=== PATIENT | male | born 1995 | race Caucasian/White ===

== ENCOUNTER 2020-05-02 14:05 | Outpatient (REF) | payer BC, SELFPAY | END 2020-05-02 14:06 | disposition home or self-care (01) | LOC: HO.LAB 14:05 | PROVIDERS: Visit Provider Internal Medicine | DX: Z20.828 Contact with and (suspected) exposure to other viral communicable diseases (principal) | CPT/HCPCS: C9803; U0003 ==

== ENCOUNTER 2023-12-21 10:15 | Emergency (ER) | payer MEDICAID, SELFPAY ==
[2023-12-21 10:19] VITALS: BP 86/63; PULSE 86; RESP 20; TEMP 37; O2SAT 98; BMI 25.8
[2023-12-21 10:35] VITALS: BP 116/53; PULSE 79
--- NOTE | 2023-12-21 11:48 | ED.GENADULT ---
HPI - General Adult General Chief complaint: Skin/Abscess/Foreign Body Stated complaint: r arm laceration Time Seen by Provider: 12/21/23 11:48 Source: patient Mode of arrival: ambulatory Limitations: no limitations History of Present Illness ED Provider: Wild [facility] narrative: Patient is a 28-year-old right-hand dominant male presenting to the emergency department with laceration to right anterior wrist. States that he fell at work and landed on a piece of sheet metal causing the laceration. He quickly applied pressure and ran here from the job site. He was initially diaphoretic and dizzy but states that has since resolved while being in the emergency department. Denies any numbness or tingling to his arm or hand. Reports full range of motion to all fingers. Unknown last tetanus vaccine. complaint: laceration Onset (ago): minute(s) Location: right and upper extremity Quality: aching Related Data Previous Rx's ?Medication ?Instructions ?Recorded cephalexin 500 mg capsule 500 mg PO QID #28 caps 12/21/23 Allergies Allergy/AdvReac Type Severity Reaction Status Date / Time No Known Allergies Allergy Verified 12/21/23 10:24 Review of Systems Review of Systems: As per HPI Yes all other systems are reviewed and are negative Constitutional: Constitutional: Reports as per HPI [facility] Social History Social History Advance Directives: No Advance Directives Information Provided: No Physical Exam ED Vital Signs: Vital Signs - 24 hr 12/21/23 10:19 12/21/23 10:35 Temperature 98.6 F Pulse Rate 86 79 Respiratory Rate 20 Blood Pressure 86/63 L 116/53 L Pulse Oximetry 98 Oxygen Delivery Method Room Air BMI result Body Mass Index 25.8 Vital signs have been reviewed and appear to be correct. Blood pressure initially hypotensive which improved without treatment. Heart rate normal. Respiratory rate normal. Temperature normal. Oxygen saturation normal. Const General: cooperative, healthy appearing and no acute distress Orientation/consciousness: oriented to person, oriented to place, oriented to time and patient oriented x3 Limitations: no limitations HENMT Head: Yes normocephalic and Yes atraumatic Ears: external ears normal General nose exam: Normal external nose present Face and sinus: Yes face symmetric Mouth: oropharynx normal and moist mucous membranes Throat: Yes uvula midline Eyes Pupils: Equal, round and reactive pupils present Neck Neck: Yes normal visual inspection and Yes supple Resp Effort & Inspection: normal respiratory effort and able to speak in complete sentences Auscultation: clear to auscultation bilaterally Cardio Rate: regular rate Rhythm: regular rhythm Heart sounds: S1 normal heart sound present and S2 normal heart sound present GI Palpation (GI): Soft to palpation and nontender Auscultation: normoactive bowel sounds General: Yes no CVA tenderness Back/Spine/Pelvis Back: no CVA tenderness Skin General skin exam: elasticity normal and turgor normal Neuro General: oriented to person, oriented to place, oriented to time, patient oriented x3, moves all extremities, no focal motor deficits and CN's II-XI intact bilaterally Cranial nerves: Yes Equal, round and reactive pupils present Cognition (Neuro): normal cognition Extrem General: Yes full ROM, Yes no pedal edema and Yes no calf tenderness Right upper extremity: elbow/forearm Details: laceration forearm distal anterior Details: linear, contaminated, involving subcutaneous tissue, with motor nerve function intact and with sensation intact; no foreign body present Elbow/forearm/wrist images: 1. 5cm linear laceration Psych Mental Status: mental status grossly normal Affect: normal affect Thought process: Normal thought process present Medications Administered Discontinued Medications Generic Name Dose Route Start Last Admin Trade Name Freq PRN Reason Stop Dose Admin Diphtheria/Tetanus/Acell Pertussis 0.5 ml 12/21/23 11:48 12/21/23 11:56 Diphth,Pertus(Acell),Tet Adult 0.5 Ml Syringe IM 12/21/23 11:49 0.5 ml .ONCE ONE Administration Lidocaine HCl 10 ml 12/21/23 11:48 12/21/23 12:13 Lidocaine Hcl 1 % Mpf 5 Ml Vial INFILTRATI 12/21/23 11:49 10 ml ONCE ONE Administration Procedures Laceration Laceration 1: Site: upper extremity Side (If applicable): right Size (cm): 5 Description: linear Depth: simple, single layer Local Anesthetic: lidocaine 1% Amount of anesthesia used (mL): 6 Pre-repair: wound explored Skin layer closed with: other (prolene) Size (cm): 4-0 Number of sutures: 12 Technique: simple, interrupted Medical Decision Making Medical Decision Making MDM Narrative: Patient is a 28-year-old right-hand dominant male presenting to the emergency department with laceration to right anterior wrist. On exam patient is awake, A+Ox3, initially hypotensive which improved without intervention, VS otherwise WNL, afebrile, normal neurological exam without focal deficits, physical exam findings as above. Given reported symptoms and physical exam findings, initial differential includes laceration, tendon injury. Laceration thoroughly cleansed and repaired as per procedure note. Wound care and return precautions discussed at bedside. Return for suture removal. Treating with course of keflex as wound was contaminated. Follow up with PCP. Patient verbalized understanding of and agreement with plan. Differential Diagnosis Differential Diagnoses: The differential diagnosis associated with the presentation includes As per [facility] External Record Review External record reviewed: Inpatient record, Office record and Outpatient record Prescription Management I considered prescription management with: Antibiotic Discharge Plan Discharge Clinical Impression: Laceration of right forearm Patient Disposition: Home, Self-Care Instructions: Cephalexin (By mouth), Care For Your Stitches (DC), Laceration (DC), Stitches Removal (ED) Additional Instructions: You have been evaluated in the emergency department today for a laceration to your forearm. Your laceration was repaired in the emergency department with 12 sutures. Please keep the area surrounding the laceration clean and dry and keep dressing in place for the next 24 hours. After that please change the dressing and assess the wound daily. Do not submerge your arm in water until the stitches have been removed and the wound is fully healed (no swimming, hot tubs, etc). Keep the area out of direct sunlight for the next 6 months to help prevent scarring. You should have the sutures removed in 7-10 days. You are being treated with antibiotics to prevent infection, please take these as prescribed for the full course. If you develop fever, redness, swelling at the site of your laceration, or thick yellow drainage please come back to the ER for a wound check. Prescriptions: New cephalexin 500 mg capsule 500 mg PO QID Qty: 28 0RF Print Language: Irish
[2023-12-21] MEDS: Diphth,Pertus(ACell),Tet Adult 0.5 ML SYRINGE IM (11:56)
[2023-12-21] MEDS: Lidocaine HCl 1 % MPF 5 ML VIAL 10 ML INFILTRATI (12:13)
[2023-12-21 12:44] VITALS: BP 116/53; PULSE 79; RESP 20; TEMP 37; O2SAT 98
== END 2023-12-21 12:45 | disposition home or self-care (01) ==
PROVIDERS: Emergency Provider Emergency Medicine; PCP Internal Medicine
DX: S51.811A Laceration without foreign body of right forearm, initial encounter (principal); W26.8XXA Contact with other sharp object(s), not elsewhere classified, initial encounter; Y93.89 Activity, other specified; Y92.89 Other specified places as the place of occurrence of the external cause; Y99.0 Civilian activity done for income or pay; Z23 Encounter for immunization
CPT/HCPCS: 12032; 90471; 90715; 99282; 99284

== ENCOUNTER 2024-12-27 19:42 | Emergency (ER) | payer MEDICAID, SELFPAY ==
--- NOTE | ~2024-12-27 | XR_ITS ---
CLINICAL HISTORY: 4th finger laceration. fracture? ran over gate 3 view right hand Comparison: None provided Findings: Nondisplaced fractures of the 4th distal phalangeal tuft. Otherwise intact bones. No foreign body. IMPRESSION: 1. Nondisplaced 4th distal phalangeal tuft fractures. This document has been electronically signed by: Wilner Villa MD on 12/27/2024 20:21:00
[2024-12-27 19:49] VITALS: BP 115/50; PULSE 85; RESP 16; TEMP 36.5; O2SAT 97; BMI 29.5
--- NOTE | 2024-12-27 19:57 | ED.GENADULT ---
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 Long laceration sustained along the radial aspect of the distal digit. Bleeding intact. Tetanus up-to-date Related Data Previous Rx's ?Medication ?Instructions ?Recorded amoxicillin 875 mg-potassium 1 tab PO BID 10 days #20 tabs 12/28/24 clavulanate 125 mg tablet cephalexin 500 mg capsule 500 mg PO Q12H 5 days #10 caps 12/30/24 Allergies Allergy/AdvReac Type Severity Reaction Status Date / Time No Known Allergies Allergy Verified 12/28/24 14:18 Physical Exam ED Exam Exam: GENERAL: Well appearing. No apparent distress. Alert. HEAD/NECK: No visual trauma. EYES: Normal to inspection. No conjunctival erythema. No discharge. ENMT: Hearing grossly normal. External nose normal. RESPIRATORY: Respiratory effort normal. CARDIOVASCULAR: Additional details (Grossly well perfused). SKIN: No jaundice. MSK: Right hand. No other significant injuries except for the right 4th distal digit. See photos below essentially volar avulsion injury extending from the PIP radial aspect to the nail bed. The skin surprisingly appears reasonably well-perfused. He has intact complete flexion at the PIP but limited flexion at the D IP. There is exposed bone distally. Vital Signs: Vital Signs - 24 hr 12/27/24 19:49 12/27/24 21:59 12/27/24 22:09 Temperature 97.7 F 98.0 F Pulse Rate 85 95 95 Respiratory Rate 16 16 16 Blood Pressure 115/50 L 130/73 130/73 Pulse Oximetry 97 96 96 Oxygen Delivery Method Room Air Room Air Room Air BMI result Body Mass Index 29.5 Course Course Course Narrative: RME: 29-year-old male presents to ED for right 4th finger laceration caused by gait running over finger. Positive for laceration was sent for x-ray Medications Administered Discontinued Medications Generic Name Dose Route Start Last Admin Trade Name Freq PRN Reason Stop Dose Admin Cephalexin HCl 500 mg 12/27/24 21:03 12/27/24 21:11 Cephalexin 500 Mg Capsule PO 12/27/24 21:04 500 mg ONCE ONE Administration Diphtheria/Tetanus/Acell Pertussis 0.5 ml 12/27/24 21:03 12/27/24 21:11 Diphth,Pertus(Acell),Tet Adult 0.5 Ml Syringe IM 12/27/24 21:04 Not Given .ONCE ONE Ibuprofen 600 mg 12/27/24 21:03 12/27/24 21:10 Ibuprofen 600 Mg Tablet PO 12/27/24 21:04 600 mg ONCE ONE Administration Lidocaine HCl 20 ml 12/27/24 21:05 12/27/24 21:11 Lidocaine Hcl 1 % Mpf 5 Ml Vial INFILTRATI 12/27/24 21:06 20 ml ONCE ONE Administration Lorazepam 1 mg 12/27/24 21:03 12/27/24 21:11 Lorazepam 1 Mg Tablet PO 12/27/24 21:04 1 mg ONCE ONE Administration Procedures Procedure Narrative Procedure Narrative: PROCEDURE NOTE Procedure: Wound Repair Performed by: Pancho Nixon MD Indication: Laceration Procedure: The wound, located on the radial aspect of the right 4th digit, measured 6 cm and was subcutaneous and muscle and linear.? The neurovascular exam was intact though decreased sensation over the avulsed distal skin.? Skin was prepped with Betadine.? Anesthesia was obtained with 8 ml of 1% lidocaine without epinephrine digital block.? Wound was not contaminated.? It was irrigated with extensively with saline/Betadine and explored.? No foreign body identified. Removal of was not required.? Extensive cleaning/undermining was/not required. No overt visible flexor tendon injury was identified The wound was closed using 8., 4-0 Prolene sutures simple interrupted including to tethering the distal aspect of the nail to the digital skin. ? Orthopedic Splinting/Casting Injury #1: Side: right Upper Extremity Injury Location: finger (R 4th) Upper Extremity Immobilizer: aluminum form splint and finger (other) Medical Decision Making Medical Decision Making MDM Narrative: Medical Decision Makin-year-old male with isolated right, dominant hand injury the 4th digit with an avulsion. X-ray shows tuft fracture. There was no clear nail bed or matrix injury. No obvious tenderness injury he does have some perhaps mild diminished distal interphalangeal joint flexion but intact PIP and MCP flexion. The nail bed appears well-perfused and sensation although difficult to assess on the avulsed polyp the remainder of the digits intact. No clear arterial injury. Orthopedic service made aware to expedite outpatient follow up without emergent consultation in the ED. They will call the patient to set up outpatient follow up. Laceration/avulsion was repaired with what I felt was adequate approximation of the tissue Preliminary Favored Differential Diagnosis: Avulsion/fracture/neurovascular injury among additional considered etiologies Testing Interpreted Independently: Not Applicable Radiology or Lab testing Results Reviewed: Tuft fracture no foreign body Consults: Not Applicable Independent Historians/External Chart Reviews: Not Applicable Social Determinants of Health Impacting MDM/Planning: Not Applicable Discharge Plan Discharge Clinical Impression: Laceration, Closed fracture of tuft of distal phalanx of finger Patient Disposition: Home, Self-Care Instructions: Finger Fracture (ED) Additional Instructions: DISCHARGE DIAGNOSES: Fracture of the tip of the finger called a tuft fracture Complex laceration, nail bed injury and avulsion of the finger skin, repaired/sutured and splinted in the emergency department HISTORY OF PRESENTATION: ?Crush injury EMERGENCY DEPARTMENT COURSE,TESTS, TREATMENTS: While in the ED today you had extensive irrigation and suturing as well as splinting of the 4th right digit. An x-ray was performed without signs of foreign body but there was a fracture of the tip bone of the finger. We contacted Orthopedics they will reach out to tomorrow DISCHARGE MEDICATIONS: ?Keflex FOLLOW-UP: ?Call your primary or general physician soon as possible to discuss your symptoms, your ED visit and to discuss follow up plans Expect a call tomorrow from the Orthopedic Department. If you do not call the office listed here on the paperwork INSTRUCTIONS ?& RETURN PRECAUTIONS: If any symptoms change first call your primary physician, if it is after-hours your primary doctors office should have a provider personal lines account executive you can speak with. If the symptoms are severe or very concerning to you then call 911 or return to the ED. Do not submerge the wound keep it covered and splinted as we have done here until you see the hand surgeon Pancho Nixon MD Emergency Physician [facility] Prescriptions: New cephalexin 500 mg capsule 500 mg PO Q12H 5 Days Qty: 10 0RF No Action amoxicillin-pot clavulanate 875-125 mg tablet 1 tab PO BID 10 Days Qty: 20 0RF Interventions: ED Discharge Assessment Last Done: 12/27/24 22:09 Discharge Date/Time: 12/27/24 22:16 Print Language: Citizen [place]
[2024-12-27] MEDS: Lidocaine HCl 1 % MPF 5 ML VIAL 20 ML INFILTRATI (21:11)
[2024-12-27 21:59] VITALS: BP 130/73; PULSE 95; RESP 16; O2SAT 96
[2024-12-27 22:09] VITALS: BP 130/73; PULSE 95; RESP 16; TEMP 36.7; O2SAT 96
== END 2024-12-27 22:16 | disposition home or self-care (01) ==
PROVIDERS: Emergency Provider Emergency Medicine; PCP Internal Medicine
DX: S62.664B Nondisplaced fracture of distal phalanx of right ring finger, initial encounter for open fracture (principal); S61.314A Laceration without foreign body of right ring finger with damage to nail, initial encounter; W23.1XXA Caught, crushed, jammed, or pinched between stationary objects, initial encounter; M79.644 Pain in right finger(s); Y93.89 Activity, other specified; Y92.89 Other specified places as the place of occurrence of the external cause; Y99.0 Civilian activity done for income or pay
CPT/HCPCS: 13132; 29130; 73120; 99284; J2003

== ENCOUNTER → 2024-12-27 19:56 | Outpatient (BNV) | payer MEDICAID, SELFPAY | PROVIDERS: Emergency Provider Emergency Medicine; PCP Internal Medicine; Visit Provider Radiology Diagnostic Radiology | DX: M79.641 Pain in right hand (principal) | CPT/HCPCS: 73120 ==

== ENCOUNTER 2024-12-28 13:17 | Outpatient (REF) | payer MEDICAID, SELFPAY ==
--- NOTE | ~2024-12-28 | XR_ITS ---
EXAMINATION: XR HAND, RIGHT CLINICAL INFORMATION: M79.641 - Pain in right hand COMPARISON: None available. TECHNIQUE: PA, lateral, and oblique views of the right hand. FINDINGS: There is a volar splint extending between the tip of the fourth digit to the third metacarpal neck region. No fracture is identified. XR/XR hand RT min 3V IMPRESSION: No acute fracture. Electronically signed by: Agapito Montes MD 12/28/2024 02:27 PM EDT
--- OUTSIDE RECORDS SUMMARY | 2024-12-28 13:44 | XMS_ITS | Data Portability ---
Author Organization [facility], [email or web address] Address [address] [place] [address] Assessment No assessment recorded. Plan of Treatment Reminders Order Date Submit Date Provider Last Modified By Organization Details Last Modified Time Details Appointments None record ed. Lab None record ed. Referral None record ed. Procedures None record ed. Surgeries None record ed. Imaging None record ed. Medication Orders None record ed. Patient TargetsNo targets recorded. Patient InstructionsNo instructions recorded. Reason for Referral None Reported. Medical Equipment None Reported. Vitals None Recorded Social History None recorded. Functional Status None recorded. Mental Status None recorded. Family History Nothing Reported. Medical History No medical history recorded. Past Encounters Encounter ID Performer Location Encounter Start Date Encounter Closed Date Diagnosis/Indication Diagnosis SNOMED-CT Code Diagnosis ICD10 Code Diagnosis Note [id number] [facility] [facility] [address] [place] [address] 07/14/2018 10:04:05 07/14/2018 10:50:46 [id number] [facility] [address] [place] [address] 01/26/2019 15:30:22 01/26/2019 15:47:05 [id number] [address] [place] [address] 03/28/2020 10:33:29 03/28/2020 13:52:51 [id number] [address] [place] [address] 12/16/2019 11:51:50 12/16/2019 13:49:06 [id number] [address] [address] [place] [address] 04/28/2019 17:52:30 04/28/2019 19:11:16 [id number] [address] [address] [place] [address] 03/31/2019 17:45:58 03/31/2019 17:50:39 [id number] [address] [address] [place] [address] 08/15/2017 12:44:19 08/15/2017 14:57:15 Health Concerns Section Related Observation LastModified by Organization Detai ls LastModified Time None Recorded Concern Status LastModified by Organization Details LastModified Time None Recorded Advance Directives Directive None Recorded Payers Insurance Date Sequence Insurance Name Policy Number Policy Avila Covered Member ID Avila Member ID Guarantor Name 12/22/2022 1 DEL (PPO) Geovani Yap [id number] Aakash Yap
== END 2024-12-28 13:18 | disposition home or self-care (01) ==
LOC: HO.HOSX 13:17
DX: S62.604B Fracture of unspecified phalanx of right ring finger, initial encounter for open fracture (principal); M79.641 Pain in right hand; W23.0XXA Caught, crushed, jammed, or pinched between moving objects, initial encounter
CPT/HCPCS: 73130; 99212

== ENCOUNTER 2024-12-28 13:56 | Outpatient (AMB) | payer MEDICAID, SELFPAY ==
--- NOTE | 2024-12-28 14:07 | A.OFFVIS_ITS ---
Vital Signs 12/28/24 14:09 Height 5 ft 8 in Weight 194 lb BMI 29.5 Intake Visit Reasons: ED f/u for R RF open fx Intake Note: Aakash is a 29 year old right hand dominant male who presents today as a new patient for an [facility] ED follow up status post right ring finger fracture, DOI: 12/27/24. Patient states he was closing a commercial chain-link fence on a rail when he sustained a crush injury to the right ring distal digit. He sustained a long laceration along the radial aspect of the distal digit. Patient reports pain is located on the medial and lateral aspect of the ring finger. He denies numbness, tingling, and finger locking; However he feels weakness in the entire hand. He is also experiencing hypersensitivity at the DIP. Allergies No Known Allergies Allergy (Verified 12/28/24 14:18) HPI HPI ED f/u for R RF open fx: Details: Aakash is a 29 year old right hand dominant male who presents today as a new patient for an [facility] ED follow up status post right ring finger fracture, DOI: 12/27/24. Patient states he was closing a commercial chain-link fence on a rail when he sustained a crush injury to the right ring distal digit. He sustained a long laceration along the radial aspect of the distal digit. Patient reports pain is located on the medial and lateral aspect of the ring finger. He denies numbness, tingling, and finger locking; However he feels weakness in the entire hand. He is also experiencing hypersensitivity at the DIP. Review of Systems Const All systems reviewed & are unremarkable except as noted in HPI and below Physical Exam Vital Signs: BMI result Body Mass Index 29.5 Extrem Other: Patient is alert, oriented, and in no acute distress. Neuro: Normal sensation of the tips of all digits of the right hand at this time Vascular: Cap refill brisk Pain: Tenderness to palpation about the right ring finger Skin: Complex laceration noted on the radial aspect of the right ring finger that has been repaired with sutures in the ED General: No ecchymosis, erythema, or evidence of infection. Psych: Appears grossly normal Affect normal Attitude cooperative Office Procedures AMB Fracture Care Fracture Billing Code: Fracture Billing Code Casting/Splints 64658-[id number] Splint application Procedure code (CPT) selection complete Results Reviewed Results Reviewed: X-rays obtained in the office today and independently reviewed by me, Gibran Blanton PA-C, demonstrate []. Assessment & Plan Assessment & Plan (1) Open fracture of phalanx of right ring finger: Code(s): S62.604B - Fracture of unspecified phalanx of right ring finger, initial encounter for open fracture Category: Medical Plan 1. Open fracture of right ring finger Date of injury 12/27/2024 Patient is educated about this condition Patient is educated about the typical recovery course Antibiotics changed to Augmentin at this time for broader spectrum coverage given dirty nature of wound Patient is provided with a fingertips splint and dressing supplies Dressing should remain clean, dry, intact until follow-up Anticipate sutures remaining in for at least 2 weeks post injury Patient understands this and is amenable to this plan Follow-up next week for reassessment, sooner with any acute concerns Orders: Orders XR hand RT min 3V 12/28/24 M79.641 - Pain in right hand Medications: New amoxicillin-pot clavulanate 875-125 mg 1 tab PO BID 20 tabs 0RF 10 days Discontinued cephalexin Discontinued Reason: Ancillary Entered New Order 500 mg PO QID 28 caps 0RF cefadroxil Discontinued Reason: Ancillary Entered New Order 500 mg PO BID 7 days 14 caps 0RF Coding Level of Care Code New Pt Level 3 (30502) Diagnoses Open fracture of phalanx of right ring finger S62.604B CPT Codes Fracture Care - Fracture Billing Code: Fracture Billing Code ([id number]) Splint - CPT: 76749-Lcuuxe Splint application ([id number])
[2024-12-28 14:09] VITALS: BMI 29.5
== END 2024-12-28 15:01 | disposition home or self-care (01) ==
LOC: HO.HOS 13:57
PROVIDERS: PCP Internal Medicine
DX: S62.604B Fracture of unspecified phalanx of right ring finger, initial encounter for open fracture (principal)
CPT/HCPCS: 99070; 99203

== ENCOUNTER → 2024-12-28 14:07 | Outpatient (BNV) | payer MEDICAID, SELFPAY | PROVIDERS: Visit Provider Radiology Diagnostic Radiology | DX: M79.641 Pain in right hand (principal) | CPT/HCPCS: 73130 ==

== ENCOUNTER 2025-01-03 14:44 | Outpatient (REF) | payer MEDICAID, SELFPAY ==
--- NOTE | ~2025-01-03 | XR_ITS ---
EXAMINATION: XR HAND, RIGHT CLINICAL INFORMATION: M79.641 - Pain in right hand , arrow indicating fourth digit COMPARISON: None available. TECHNIQUE: PA, lateral, and oblique views of the right hand. FINDINGS: There is a healed boxer's fracture. No acute fracture is identified. There is soft tissue swelling involving the distal half of the fourth digit. There is nonspecific punctate high density anterior to the mid portions of the distal phalanx of the fourth digit. XR/XR hand RT min 3V IMPRESSION: Soft tissue swelling involving the fourth digit. Healed boxer's fracture. Electronically signed by: Agapito Montes MD 01/03/2025 03:01 PM EDT
--- OUTSIDE RECORDS SUMMARY | 2025-01-03 15:30 | XMS_ITS | Data Portability ---
Author Organization [facility], [address] Address [address] [place] [address] Assessment No assessment recorded. Plan of Treatment [...] SNOMED-CT Code Diagnosis ICD10 Code Diagnosis Note [id number] [facility] [address] [place] [address] 07/14/2018 10:04:05 07/14/2018 10:50:46 [id number] [facility] [address] [place] [address] 01/26/2019 15:30:22 01/26/2019 15:47:05 [id number] [address] [address] [facility] [place] [address] 03/28/2020 10:33:29 03/28/2020 13:52:51 [id number] [address] [place] [address] 12/16/2019 11:51:50 12/16/2019 13:49:06 [id number] [address] [address] [address] [facility] [address] [place] [address] 04/28/2019 17:52:30 04/28/2019 19:11:16 [id number] [address] [facility] [address] [place] [address] 03/31/2019 17:45:58 03/31/2019 17:50:39 [id number] [address] [facility] [place] [address] 08/15/2017 12:44:19 08/15/2017 14:57:15 Health Concerns Section Related Observation LastModified by Organization Detai ls LastModified Time None Recorded Concern Status LastModified by Organization Details LastModified Time None Recorded Advance Directives Directive None Recorded Payers Insurance Date Sequence Insurance Name Policy Number Policy Avila Covered Member ID Avila Member ID Guarantor Name 12/22/2022 1 DEL (PPO) Geovani Yap [id number] Aakash Yap
== END 2025-01-03 14:45 | disposition home or self-care (01) ==
LOC: HO.HOSX 14:44
DX: S62.604D Fracture of unspecified phalanx of right ring finger, subsequent encounter for fracture with routine healing (principal); M79.641 Pain in right hand; X58.XXXD Exposure to other specified factors, subsequent encounter
CPT/HCPCS: 73130; 99212

== ENCOUNTER 2025-01-03 14:45 | Outpatient (AMB) | payer MEDICAID, SELFPAY ==
--- NOTE | 2025-01-03 14:58 | A.OFFVIS_ITS ---
Vital Signs 01/03/25 15:03 Height 5 ft 8 in Weight 195 lb BMI 29.6 Handedness Right Intake Visit Reasons: OV-Rt RF open fx f/u with XR Intake Note: Aakash is a 29 year old right hand dominant male who presents today for follow up status post right ring finger fracture, DOI: 12/27/24. At his last visit, one week ago, his antibiotics were changed to Augmentin. He was provided with a fingertips splint and dressing supplies and instructed to maintain the dressing clean, dry, and intact until follow-up. Patient reports he thinks his finger looks better than what it first looked at. Expresses pain if he accidental bumps the right ring finger. He has been splinting the finger and says it was removed to update his xrays in office today. He has not completed his antibiotics but says he is still taking them. Allergies No Known Allergies Allergy (Verified 01/03/25 15:01) HPI HPI OV-Rt RF open fx f/u with XR: Details: Aakash is a 29 year old right hand dominant male who presents today for follow up status post right ring finger fracture, DOI: 12/27/24. At his last visit, one week ago, his antibiotics were changed to Augmentin. He was provided with a fingertips splint and dressing supplies and instructed to maintain the dressing clean, dry, and intact until follow-up. Patient reports he thinks his finger looks better than what it first looked at. Expresses pain if he accidental bumps the right ring finger. He has been splinting the finger and says it was removed to update his xrays in office today. He has not completed his antibiotics but says he is still taking them. [facility] Medical History (Updated 01/03/25 @ 15:02 by LATRELL Dumas) Open fracture of phalanx of right ring finger (~12/27/24) Social History (Updated 01/03/25 @ 15:02 by LATRELL Dumas) Alcohol intake: former Substance Use Type: Marijuana service: No Current occupational status: employed Current occupation: Self employed Review of Systems Const All systems reviewed & are unremarkable except as noted in HPI and below Physical Exam Vital Signs: BMI result Body Mass Index 29.6 Extrem Other: Patient is alert, oriented, and in no acute distress. Neuro: Normal sensation of the tips of all digits of the right hand at this time Vascular: Cap refill brisk Pain: Very mild tenderness to palpation about the right ring finger Skin: Complex laceration noted on the radial aspect of the right ring finger that has been repaired with sutures in the ED prior to previous visit General: No ecchymosis, erythema, or evidence of infection. Psych: Appears grossly normal Affect normal Attitude cooperative Results Reviewed Results Reviewed: X-rays obtained in the office today and independently reviewed by me, Gibran Blanton PA-C, demonstrate nondisplaced fracture of the distal phalanx of right ring finger. Assessment & Plan Assessment & Plan (1) Open fracture of phalanx of right ring finger: Onset Date: ~12/27/24 Code(s): S62.604B - Fracture of unspecified phalanx of right ring finger, initial encounter for open fracture Category: Medical Plan 1. 1. Open fracture of right ring finger Date of injury 12/27/2024 Patient is educated about this condition Patient is educated about the typical recovery course Augmentin refilled given dirty nature of the wound Patient is provided with a fingertips splint and dressing supplies for the following week Dressing should remain clean, dry, intact until follow-up Anticipate sutures remaining in for at least 1 more week Patient understands this and is amenable to this plan Follow-up in 7-10 days for reassessment, sooner with any acute concerns. Anticipate removal of at least every other suture at that time. Orders: Orders XR hand RT min 3V Today M79.641 - Pain in right hand Medications: Refilled amoxicillin-pot clavulanate 875-125 mg 1 tab PO BID 20 tabs 0RF 10 days Coding Level of Care Code Global (96673) Diagnoses Open fracture of phalanx of right ring finger S62.604B
[2025-01-03 15:03] VITALS: BMI 29.6
== END 2025-01-03 15:35 | disposition home or self-care (01) ==
LOC: HO.HOS 14:45
PROVIDERS: PCP Internal Medicine
DX: S62.604B Fracture of unspecified phalanx of right ring finger, initial encounter for open fracture (principal)
CPT/HCPCS: 99213

== ENCOUNTER → 2025-01-03 14:49 | Outpatient (BNV) | payer MEDICAID, SELFPAY | PROVIDERS: Visit Provider Radiology Diagnostic Radiology | DX: R22.31 Localized swelling, mass and lump, right upper limb (principal) | CPT/HCPCS: 73130 ==

== ENCOUNTER 2025-01-18 10:45 | Outpatient (REF) | payer MEDICAID, SELFPAY | END 2025-01-18 10:46 | disposition home or self-care (01) | LOC: HO.HOSX 10:45 | DX: Z13.89 Encounter for screening for other disorder (principal) ==